=== PATIENT | female | born 1970 | race Caucasian/White ===

== ENCOUNTER 2022-02-10 21:16 | Emergency (ER) | payer BC, MEDICARE ==
[~2022-02-10] VITALS: Ht 160 cm; Wt 50.0 kg
[2022-02-10] MEDS ORDERED: MIDAZOLAM INJ 2MG/2ML VIAL (J2250 PER 1MG) IV ONE (21:25)
[2022-02-10] MEDS ORDERED: MIDAZOLAM 5MG/ML 1ML VIAL (J2250 PER 1MG) IM ONE (21:30)
[2022-02-10 23:00] VITALS: BP 112/70
== END 2022-02-10 23:35 | disposition home or self-care (01) ==
LOC: M ED 21:16
DX: S83.005A Unspecified dislocation of left patella, initial encounter (principal); W01.0XXA Fall on same level from slipping, tripping and stumbling without subsequent striking against object, initial encounter; Y92.410 Unspecified street and highway as the place of occurrence of the external cause; Y93.K9 Activity, other involving animal care; Y99.9 Unspecified external cause status; Z88.5 Allergy status to narcotic agent
CPT/HCPCS: 73564; 96372; 99284; J2250